=== PATIENT | male | born 1975 | race Caucasian/White ===

== ENCOUNTER 2016-07-04 17:33 | Inpatient (IN) ==
[2016-07-04] MEDS ORDERED: NS 2,000 ML ONE (17:50)
[2016-07-04] MEDS ORDERED: TYLENOL ONE ×2 (17:55→18:01)
[2016-07-04] MEDS ORDERED: TYLENOL PO ONE (18:01)
[2016-07-04] MEDS ORDERED: NS 1,000 ML IV ONE ×3 (18:01→22:51)
--- NOTE | 2016-07-04 18:12 | PROVIDER DOCUMENTATION ---
HPI-General Adult - General Chief Complaint: General Adult Stated Complaint: fever,chills Time Seen by Provider: 07/04/16 17:49 Source: patient Allergies/Adverse Reactions: Patient Allergies Allergy/AdvReac Type Severity Reaction Status Date / Time No Known Allergies Allergy Verified 07/04/16 17:37 Home Medications: Home Medication List Medication Instructions Recorded Confirmed Last Taken Type Levofloxacin [Levaquin] 500 mg PO DAILY #15 tablet 07/07/16 Unknown Rx Levofloxacin [Levaquin] 500 mg PO DAILY #15 tablet 07/07/16 Unknown Rx Levofloxacin [Levaquin] 500 mg PO DAILY #15 tablet 07/07/16 Unknown Rx - History of Present Illness -Gen Adult Nature of Presenting Problems: 41 yo male presents to ER with c/o fever, dizziness, sweating for the past 2 days. He passed out at [employer] 2 days ago but was not evaluated. He did go to [facility] and dx with thrombosed hemorrhoid and given norco and anusol supp. Location of Pain/Injury: reports: other (rectal) Pain Radiation: reports: no radiation Quality of Pain: reports: throbbing Severity: reports: moderate Onset/Duration: reports: 2 days ago Timing: reports: still present Context/Activities at Onset: reports: none Modifying Factors: improves with: nothing Associated Symptoms: reports: diaphoresis, dizziness, fever/chills, muscle aches , syncope, weakness Similar Symptoms Previously?: Yes Recently seen or treated by another doctor?: No Review of Systems - Adult - REVIEW OF SYSTEMS - ADULT Constitutional: reports: see HPI, chills, fever Eyes: reports: no symptoms reported Ears, Nose, Mouth & Throat: reports: no symptoms reported Cardiovascular: reports: no symptoms reported Respiratory: reports: no symptoms reported Gastrointestinal: reports: no symptoms reported Genitourinary: reports: no symptoms reported Musculoskeletal: reports: see HPI, muscle aches Integumentary: reports: no symptoms reported Neurological: reports: no symptoms reported Psychiatric: reports: no symptoms reported Endocrine: reports: no symptoms reported Hematologic/Lymphatic: reports: no symptoms reported Allergic/Immunologic: reports: no symptoms reported All Other Systems: Reviewed and Negative Past History - Adult - PAST MEDICAL HISTORY-ADULT Review of Records: reports: Old Records Reviewed, Nursing Assessment Review, Medications Reviewed, Social history reviewed & non-contributory. - PRIOR SURGERIES/PROCEDURES Surgical/Procedure History: reports: appendectomy - IMMUNIZATION STATUS Childhood Immunizations: See Nurse Assessment Flu Vaccine: See Nurse Assessment - SOCIAL HISTORY Smoking: cigarettes, greater than 1 pack/day (1 ppd) Provider spent 3-5 mins advising pt. on dangers of tobacco.: Discussed manners to quit use, and f/u contacts for add'l counseling. Substance Use: none/never, denies Alcohol Use Frequency: never Living Situation: family Physical Exam-General - PHYSICAL EXAM-ADULT Initial Vital Signs Reviewed: Yes - CONSTITUTIONAL General Appearance: appears well, alert, no apparent distress - EYES Eyes: PERRL/EOMI - HEAD, EARS, NOSE, MOUTH & THROAT HENMT: normocephalic/atraumatic - RESPIRATORY Respiratory: no respiratory distress - CARDIOVASCULAR Cardiovascular: tachycardia - GASTROINTESTINAL (ABDOMEN) Abdominal Exam: normal bowel sounds, non tender, soft, tenderness (rectal area; no external hemorrhoids visualized) - GENITOURINARY Rectal Exam: tenderness, other (induration at 1200 position with palpable heat to the area.). negative: hemorrhoids - MUSCULOSKELETAL Back Exam: normal inspection Extremity: normal inspection, no pedal edema - SKIN Integumentary: diaphoresis, other (skin hot to touch) - NEUROLOGIC Neurologic: grossly normal - PSYCHIATRIC Psych/Mental Status: normal mood/affect, normal thought content, normal thought process, oriented x 3 Progress - PLAN OF CARE/RESULTS Progress/Plan/Lab Results: Vital Signs - 8 hr 07/04/16 17:33 Temperature 101.1 F H Pulse Rate 138 H Respiratory Rate 16 Blood Pressure 114/78 O2 Sat by Pulse Oximetry 97 Orders Category Date Time Status IV Insertion ORDERED Care 07/04/16 17:59 Ordered CHEST-2 VIEWS [RAD] Stat Exams 07/04/16 18:06 Ordered CBC WITH ELECTRONIC DIFF [HEME] Stat Lab 07/04/16 17:59 Uncollected CK PROFILE [SP CHEM] Stat Lab 07/04/16 18:06 Ordered COMPREHENSIVE METABOLIC PANEL [CHEM] Stat Lab 07/04/16 17:59 Uncollected TROPONIN T Stat Lab 07/04/16 18:[address] W/POSS RFLX CULT [URINALYSIS] Stat Lab 07/04/16 18:01 Uncollected 0.9% Sodium Chloride Inj [Ns] 1,000 ml Med 07/04/16 17:50 Discontinued .ROUTE As Directed Acetaminophen [Tylenol] Med 07/04/16 17:55 Discontinued 1,000 mg .ROUTE .STK-MED ONE Acetaminophen [Tylenol] Med 07/04/16 18:01 Once 1,000 mg PO NOW ONE Acetaminophen [Tylenol] Med 07/04/16 18:01 Discontinued 500 mg .ROUTE .STK-MED ONE Ns 1000 ml IV Bolus X1 Med 07/04/16 18:01 Ordered 0.9% Sodium Chloride Inj [Ns] 1,000 ml IV 999 mls/hr EKG [EKG] Stat Ther 07/04/16 17:38 Ordered 1910-Discussed patient case/reviewed labs/CXR with Dr. Mark; ok to order CT pelvis/abd Result Diagrams: 07/07/16 06:08 07/07/16 06:08 - XRAY 1 XRAY Study: Chest - CT/MRI 1 CT Study: Abdomen, Pelvis Impression: See EMR Report (limited exam without administered contrast; apparent proctitis; questionable sinus tract along left side of upper rectum versus artifact of limited distention; no other abscess identified; colonic diverticulosis; no free air; borderline retroperitoneal lymph nodes. -per Dr. Clancy) - CONSULTS/PCP/HOSPITALIST Notification #1 *Consult/PCP/Hospitalist*: Dr. Antunez Time Discussed: 21:55 Reason/Comments: proctitis, possible abscess per CT Consult Disposition: other (No need for consult, as pt does not have evidence of perirectal abscess) #2 Consult: Dr. Navdeep Rivera Discussed: 22:00 Reason/Comments: proctitis, possible abscess per CT, tachycardia, hypotension Consult Disposition: other (will not admit at ED; send to [facility]- no need for GI consult) #3 Consult: Dr. Romo Time Discussed: 23:21 Reason/Comments: proctitis, possible abscess per CT, tachycardia, hypotension Consult Disposition: Admit (and give vancomycin IV) - CHANGE OF SHIFT REPORT (ED Provider) Report Given and Care Transferred to:: Linda BROCK Time of Transfer: 20:16 Items Pending: CT/MRI Results Comment: stable Departure - Departure Time of Disposition Decision: 20:16 DIAGNOSIS: Fever and chills, Proctitis, Perianal erythema Hemorrhoid Qualifiers: Hemorrhoid type: unspecified Qualified Code(s): K64.9 - Unspecified hemorrhoids Disposition: ADMITTED INPATIENT 09 Certified Medical Emergency: Emergent Condition: Stable - Critical Care Note This patient required my direct personal management.: No Attestation - Physician/ WHITNEY Attestation Patient care was provided by Advanced Practice Provider:: Yes Advanced Practice Provider:: Lubna Arango Advanced Practice Provider documentation review:: The Mid-level provider documentation, treatment plan and medical decision making was reviewed by the physician who agrees with all treatment and medical decision making by the MLP.
[2016-07-04 18:15] LABS: MANUAL DIFF NEEDED? NO
[2016-07-04 18:27] LABS: BILIRUBIN URINE NEGATIVE (NEGATIVE); BLOOD URINE NEGATIVE (NEGATIVE); CLARITY CLEAR (CLEAR); COLOR YELLOW; GLUCOSE URINE NEGATIVE (NEGATIVE); LEUKOCYTES URINE TRACE (NEGATIVE); NITRITE URINE NEGATIVE (NEGATIVE); PH URINE 6.5; PROTEIN URINE NEGATIVE (NEGATIVE); SP GRAVITY URINE 1.015; UROBILINOGEN URINE 1+(1 mg/dL)
[2016-07-04 18:27] LABS: EOS# 0.02 X1000 (0.0-0.7); EOS% 0.6 % (0.0-10.0); HEMATOCRIT 41.4 % (42.0-52.0); HEMOGLOBIN 14.2 g/dL (14.0-18.0); IMM GRAN# 0.01 X1000 (0.0-0.04); IMM GRAN% 0.3 % (0.0-0.5); LYMPH# 0.44 X1000 (1.2-3.4); LYMPH% 12.3 % (20.5-51.1); MCHC 34.3 g/dL (33-37); MCV 93.2 FL (81-99); MONO# 0.03 X1000 (0.11-0.59); MONO% 0.8 % (1.7-9.3); MPV 9.9 FL (7.4-10.4); PLT 210 X1000 (130-400); RBC 4.44 XMIL (4.7-6.1)
--- NOTE | 2016-07-04 18:47 | EKG Report ---
Test Performed on : 07/04/2016 5:38:07 PM Test Reason : TACHY Blood Pressure : / mmHG Vent. Rate : 135 BPM Atrial Rate : 135 BPM P-R Int : 142 ms QRS Dur : 078 ms QT Int : 378 ms P-R-T Axes : 038 016 036 degrees QTc Int : 567 ms Sinus tachycardia. Nonspecific ST and T wave abnormality Abnormal ECG No previous ECGs available Unconfirmed Result
[2016-07-04 18:53] LABS: URINE CAST NONE SEEN /LPF; URINE CRYSTAL NONE SEEN /HPF; URINE CULTURE PL NEEDED? YES; URINE EPITHELIAL CELLS <10 /HPF (<10); URINE RBC <10 /HPF (<10); URINE SOURCE CLEAN CATCH; URINE WBC <10 /HPF (<10)
[2016-07-04] MEDS ORDERED: MOTRIN ONE (18:55)
[2016-07-04 18:59] LABS: AGAP 15; ALKALINE PHOSPHATASE 111 U/L (32-122); BUN 14 mg/dL (8-22); CALCIUM 8.9 mg/dL (8.8-10.2); CHLORIDE 101 mmol/L (98-107); COSMO 272; GOT 15 U/L (10-34); GPT 13 U/L (10-44); POTASSIUM 3.8 mmol/L (3.5-5.1); SODIUM 136 mmol/L (136-145); TCO2 19 mmol/L (25-35); TOTAL PROTEIN 7.1 g/dL (6.3-8.3)
[2016-07-04] MEDS ORDERED: MOTRIN PO ONE (19:00)
[2016-07-04] MEDS ORDERED: ZOSYN 3.375 GM/NS 3.375 GM/50 ML IVPB IV ONE (21:54)
[2016-07-04 22:31] LABS: UR AMPHETAMINES QUAL NONE DETECTED (NONE DETECT); UR BARBITUATES QUAL NONE DETECTED (NONE DETECT); UR BENZODIAZEPIN QUAL NONE DETECTED (NONE DETECT); UR CANNABINOIDS QUAL NONE DETECTED (NONE DETECT); UR COCAINE QUAL NONE DETECTED (NONE DETECT); UR MDMA QUAL NONE DETECTED (NONE DETECT); UR METHADONE QUAL NONE DETECTED (NONE DETECT); UR METHAMPHETAMINE QUAL NONE DETECTED (NONE DETECT); UR OPIATES QUAL NONE DETECTED (NONE DETECT); UR OXYCODONE QUAL NONE DETECTED (NONE DETECT); UR PCP QUAL NONE DETECTED (NONE DETECT); UR TCA QUAL NONE DETECTED (NONE DETECT)
[2016-07-04] MEDS ORDERED: VANCOMYCIN 1 GM/NS 1 GM/250 ML IVPB IV ONE (23:22)
[2016-07-04] MEDS ORDERED: MORPHINE IV PRN (23:33)
[2016-07-04] MEDS ORDERED: ZOFRAN IV PRN (23:33)
--- NOTE | 2016-07-05 09:06 | Diag Imaging Result Document ---
PROCEDURE NAME: ABDOMEN/PELVIS W/O CONTRAST - 07/04/2016 CT ABDOMEN AND PELVIS WITHOUT CONTRAST: COMPARISON: None available. FINDINGS: Note that this study is somewhat limited due to lack of IV contrast. There is vague haziness involving the perirectal fat suggesting proctitis. There is an apparent diverticulum arising from the left side of the rectum. This may be artifact due to poor distention. I can identify discrete abscess given the limitations of having no IV contrast. There is extensive sigmoid colonic diverticulosis. There is no evidence of diverticulitis involving the sigmoid colon specifically. There is evidence of a prior appendectomy. There are few shotty borderline prominent pelvic lymph nodes that are probably reactive. The remainder of the solid viscera of the abdomen and pelvis and the remainder of the GI tract is essentially unremarkable. IMPRESSION: 1. Vague inflammatory changes surrounding the rectum suggesting proctitis. 2. Apparent diverticulum arising from the left side of the rectum as well as sigmoid colonic diverticulosis. 3. Other incidental/nonacute findings detailed above.
--- NOTE | 2016-07-05 09:14 | Diag Imaging Result Document ---
PROCEDURE NAME: CHEST-2 VIEWS - 07/04/2016 FRONTAL AND LATERAL CHEST, TWO VIEWS: FINDINGS: The lungs are well expanded. The heart is not enlarged. The vessels are not distended. No pneumonia. No pleural effusions. No free air beneath the diaphragm. IMPRESSION: No acute abnormality.
[2016-07-05] MEDS ORDERED: NS 1,000 ML IV SCH (11:40)
[2016-07-05] MEDS ORDERED: VANCOMYCIN IV PER PHARMACY MISC SCH (11:40)
[2016-07-05] MEDS ORDERED: TUCKS HEMORRHOIDAL OINTMENT PR PRN (11:40)
[2016-07-05] MEDS ORDERED: ZOFRAN IV PRN ×2 (11:40→15:57)
[2016-07-05] MEDS ORDERED: FLAGYL 500 MG/NS 500 MG/100 ML IVPB IV SCH (11:45)
[2016-07-05] MEDS ORDERED: TUCKS PADS TOP PRN ×2 (12:15→15:56)
[2016-07-05] MEDS ORDERED: ZOSYN 3.375 GM/NS 3.375 GM/50 ML IVPB IV SCH (12:30)
[2016-07-05] MEDS ORDERED: PREPARATION H OINT PR PRN ×2 (12:45→15:56)
[2016-07-05] MEDS ORDERED: VANCOMYCIN 1,750 MG in NS 500 ML IV SCH (13:00)
[2016-07-05] MEDS ORDERED: VANCOMYCIN 1,750 MG in NS 250 ML IV SCH ×4 (13:00)
[2016-07-05] MEDS ORDERED: NICODERM PATCH TD SCH (13:15)
[2016-07-05 14:40] LABS: BASO% 0.1 % (0.0-0.8); EOS# 0.12 X1000 (0.0-0.7); EOS% 0.4 % (0.0-10.0); HEMATOCRIT 37.7 % (42.0-52.0); HEMOGLOBIN 12.2 g/dL (14.0-18.0); IMM GRAN# 0.19 X1000 (0.0-0.04); IMM GRAN% 0.6 % (0.0-0.5); LYMPH# 1.01 X1000 (1.2-3.4); LYMPH% 3.3 % (20.5-51.1); MANUAL DIFF NEEDED? YES; MCH 30.5 PG (27-31); MCHC 32.4 g/dL (33-37); MCV 94.3 FL (81-99); MONO# 1.84 X1000 (0.11-0.59); MONO% 5.9 % (1.7-9.3); MPV 10.9 FL (7.4-10.4); NEUT% 89.7 % (42.2-75.2); PLT 168 X1000 (130-400)
[2016-07-05 14:45] LABS: HYPOCHROM OCCASIONAL; TARGET CELLS OCCASIONAL
--- NOTE | 2016-07-05 16:19 | HISTORY AND PHYSICAL ---
CHIEF COMPLAINT: Rectal pain. HISTORY OF PRESENT ILLNESS: This is a 41-year-old male with a history of tobacco abuse who presented to the emergency room complaining of rectal pain, a temperature of a 104 degrees and generalized body aches and rigors. This 41-year-old male who presented to the emergency room after been found to have a temperature of 104 degrees and developing rigors , generalized body aches over the 2-3 hours prior to coming to the emergency room. He states that a week ago he developed rectal pain after having an episode of constipation. This did increase and therefore he went to an outside emergency room. He states he was evaluated by 2 separate emergency room doctors, diagnosed with external hemorrhoids, given Anusol and Lortab. He was at [facility] getting these medications filled on Tuesday, he had an episode of a sudden onset of nausea, shortly after his ears began to ring, he started sweating and he passed out. He said he woke up on the floor with EMS at his side. Vital signs were stable at this time. He refused treatment and went home with his girlfriend. He continued to have rectal pain and diarrhea stated yesterday he was eating lunch and began to have generalized body ache, shortly after he developed rigors, began to sweat, his temperature was reportedly 104 therefore he was brought into the emergency room. On arrival he did have a temperature of 101 degrees and within an hour it did go up to 103.1. CT scan of the abdomen and pelvis revealed vague inflammatory changes surrounding the rectum suggesting proctitis well as a diverticulum arising from the left side of the rectum with sigmoid colonic diverticulosis with no diverticulitis seen. Shortly after being in the emergency room his blood pressure did drop to 70s to 80s. He was resuscitated with 3 or 4 L of saline, given vancomycin, Zosyn and admitted to ICU for further evaluation and treatment. PAST MEDICAL HISTORY: Denies. PAST SURGICAL HISTORY: Denies. SOCIAL HISTORY: He does smoke about a pack to 2 packs a day. He denies alcohol or illicit drug use. He does have family members that are close that are active in his care. ALLERGIES: No known drug allergies. HOME MEDICATIONS: None. REVIEW OF SYSTEMS: A 14 point review of systems is discussed with patient with pertinent positives stated in HPI. He denies chest pain, palpitations, dizziness, nausea , vomiting, constipation any black or bloody vomitus, black or bloody stools, hematuria, dysuria, frequency, urgency. PHYSICAL EXAMINATION: GENERAL: This is a 41-year-old male who is sitting in the bed in no distress. VITAL SIGNS: Blood pressure is 139/64 with a heart rate of 84, respirations are 20, temperature is 98.2 degrees with room air saturation is 98-100%. HEENT: Head is normocephalic, atraumatic. Pupils equal, round, react to light. EOMS are intact. Sclerae anicteric. Mucous membranes are moist. NECK: Supple. Trachea midline. CARDIOVASCULAR: Regular rate and rhythm S1, S2 appreciated. PULMONARY: Breath sounds are clear. No increased work of breathing noted. GASTROINTESTINAL: Abdomen is soft, nontender, nondistended with bowel sounds in all 4 quadrants. BACK: No CVAT. No spine tenderness. EXTREMITIES: No clubbing, cyanosis, or edema. Calves nontender. Pulses are palpable x4. RECTAL: He does have an area at around 3, 4, 5 o'clock to the rectum that is fluctuant, it is very tender to palpation. He has no drainage. DIAGNOSTICS: WBC is 3.58 on admission, this morning is 30.99, hemoglobin 14.2, hematocrit 41.4 on admission with platelets of 210,000. Sodium 136, potassium 3.8, BUN 14, creatinine 0.9 with a glucose of 93. Urinalysis is essentially negative. Urine drug screen is negative. Flu A and B are negative. CT scan of the abdomen pelvis as stated above. ASSESSMENT AND PLAN: 1. Perirectal abscess. 2. Sepsis secondary to #1. 3. History hemorrhoids. PLAN: The patient has been admitted to ICU. He has had fluid resuscitation. We will continue with fluids, will continue antibiotic coverage of vancomycin, Zosyn and Flagyl. We will consult Dr. Zapata general surgery. He will remain on clear liquids until we speak with Dr. Zapata. We have Tucks and hemorrhoid ointment for local irritation. Nicotine patch as needed. Further treatments pending hospital course. Dictated by LI Aguilar for Akshat Harrington MD cc: LI Aguilar Addendum: I personally evaluated and examined the patient in conjunction to the [employer] and agreed with her assessments and plans. My examined showed evidence of perianal abscess MTDD
[2016-07-05] MEDS: NS 1,000 ML IV SCH (17:18)
--- NOTE | 2016-07-05 18:20 | CONSULTATION ---
DATE OF CONSULTATION: 07/05/2016 HISTORY OF PRESENT ILLNESS: This 41-year-old male who presents with syncope, fevers, tachycardia and perianal pain who is admitted ICU with hypotension, tachycardia and fevers up to 104. He has been given antibiotics and fluid resuscitation overnight and is clinically improved. He continues have perianal pain and difficulty sitting down. CT shows some stranding around his distal rectum with proctitis of unclear etiology. He has some diverticulosis. States he recently was constipated, but denies any bleeding and overall, no long-term change in his bowel habits. PAST MEDICAL HISTORY: Negative. SURGICAL HISTORY: He has had an appendectomy. SOCIAL HISTORY: Pack-a-day smoker. No alcohol. Works in construction. FAMILY HISTORY: Negative for cancer. Specifically, colon and rectal cancer. He has never had a colonoscopy. REVIEW OF SYSTEMS: 10 point negative other than HPI PHYSICAL EXAMINATION: Vital Signs: Temperature is 98.6 degrees at this point with pulse of 80, but he was tachycardic when he got here up to 120s. Blood pressure 147/64, oxygen saturation 99% on room air. General: He is alert, in no acute distress. HEENT: There is no scleral icterus. No cervical masses. No lymphadenopathy in his cervical or axillary basins. Cardiovascular: Normal rate, regular rhythm. Pulmonary: No increased work of breathing. He is on room air. Abdomen: Soft, nontender, nondistended. I do not feel any inguinal hernias. There is no inguinal lymphadenopathy. Integument: Warm, dry, without jaundice. Musculoskeletal: There is no lower extremity edema. His extremities are well perfused with normal muscle tone. Rectal: There is some induration and fluctuance in the left lateral aspect, very tender to the perianal skin. Digital rectal exam deferred given patient discomfort. I do not see any external hemorrhoidal tissue. No obvious prolapsing masses. LABORATORY: White count was 3.58 when he was admitted, 30.99 this morning. Hematocrit 36. LFTs are normal. Lactate was 1.7 last night. Creatinine 0.9. Glucose 93. Urinalysis: Trace white blood cells. UDS, flu A and b were negative. IMAGING: CT scan showed noncontrast shows some diverticulosis and stranding around his distal rectum, but no obvious abscess. ASSESSMENT/PLAN: A 41-year-old male with a perirectal abscess noted on exam with some stranding noticed in distal rectum. He came in with a septic-type picture. With resuscitation and antibiotics, this seemed to improve. He still has tenderness on examination. Risks, benefits, alternatives discussed with patient and he consents to examination under anesthesia with drainage of perirectal abscess and flexible sigmoidoscopy/rigid proctoscopy. We will mobilize to the OR this afternoon. We did discuss possibility of this developing a fistula over time and the need for other surgeries in the future. We also discussed the importance of getting a colonoscopy after this episode is resolved in the next month or so given his recent change of bowel habits. Plans are being made to transfer to [facility]. We will do the surgery and follow him while inpatient there. He is on appropriate antibiotics. cc: Berny Zapata MD MTDD
[2016-07-05] MEDS: ZOSYN 3.375 GM/NS 3.375 GM/50 ML IVPB IV SCH (20:13)
[2016-07-05] MEDS: FLAGYL 500 MG/NS 500 MG/100 ML IVPB IV SCH (21:47)
[2016-07-05] MEDS ORDERED: MORPHINE ONE (22:35)
[2016-07-05] MEDS ORDERED: DIPRIVAN 1% ONE (22:52)
[2016-07-05] MEDS ORDERED: FENTANYL ONE (22:53)
[2016-07-06] MEDS: FLAGYL 500 MG/NS 500 MG/100 ML IVPB IV SCH ×4 (02:33→20:13)
[2016-07-06] MEDS: ZOSYN 3.375 GM/NS 3.375 GM/50 ML IVPB IV SCH ×3 (04:01→23:11)
[2016-07-06] MEDS: VANCOMYCIN 1,750 MG in NS 250 ML IV SCH ×2 (05:14→18:07)
[2016-07-06] MEDS: MORPHINE IV PRN ×2 (05:14→20:13)
[2016-07-06 06:22] LABS: HEMATOCRIT 36.3 % (42.0-52.0); HEMOGLOBIN 11.9 g/dL (14.0-18.0); MCH 31.5 PG (27-31); MCHC 32.8 g/dL (33-37); MPV 10.8 FL (7.4-10.4); RBC 3.78 XMIL (4.7-6.1)
[2016-07-06 06:31] LABS: AGAP 13; BUN 15 mg/dL (8-22); CALCIUM 8.1 mg/dL (8.8-10.2); CHLORIDE 108 mmol/L (98-107); COSMO 286; SODIUM 143 mmol/L (136-145); TCO2 22 mmol/L (25-35)
[2016-07-06] MEDS: PRILOSEC PO SCH (06:39)
[2016-07-06] MEDS: TYLENOL PO PRN (06:51)
[2016-07-06] MEDS ORDERED: PRILOSEC PO SCH (07:00)
--- NOTE | 2016-07-06 07:25 | OPERATIVE NOTE ---
PROCEDURE DATE: 07/05/2016 PREOPERATIVE DIAGNOSES: 1. Perirectal abscess. 2. Question proctitis. POSTOPERATIVE DIAGNOSIS: Perirectal abscess. COMPLICATIONS: None. PROCEDURE PERFORMED: 1. Examination under anesthesia. 2. Incision and drainage of perirectal abscess, intersphincteric. 3. Flexible sigmoidoscopy. SPECIMENS: Cultures from abscess cavity. COMPLICATIONS: None. INDICATION: This is a 42-year-old male who is admitted with a septic-type picture. CT scan showed some stranding around the distal rectum. Exam was consistent with an abscess. Examination with flexible sigmoidoscopy to rule out mucosal process and drainage of abscess indicated. OPERATIVE FINDINGS: Flexible sigmoidoscopy to 30 cm was normal and showed no mucosal lesions. There is no evidence of mucosal erythema. Examination under anesthesia: In the left posterior quadrant, there was some indurated tissue right at the anal verge with area of fluctuance and erythema. Digital rectal exam showed some induration in this area as well but there are no masses. There were some prominent hemorrhoidal tissue but no prolapsing hemorrhoids noted. There was no evidence of fistula tract on the internal exam. OPERATIVE NOTE: Risks, benefits, alternatives discussed with the patient. He consented to the procedure. He was seen in the preoperative area where surgery to be performed was confirmed. He was taken to the operating room, placed in the supine position. General anesthesia was induced. Preprocedural antibiotics were confirmed. He is on scheduled antibiotics. He was placed in lithotomy position. All bony prominence were padded. The perineum was prepped with Betadine solution and draped in the usual fashion. After time-out was performed an examination was performed with the above findings. An 11 blade scalpel used to incise the areas of most fluctuance. There was very thin skin and it was almost spontaneously draining. We opened this. Disrupted the underlying loculations bluntly with care to protect the sphincter muscles ,which were significantly inflamed in this area and involved with the abscess cavity. We disrupted this draining all collections. Obtained hemostasis. After irrigating the wound, we packed this with half-inch iodoform gauze. We then did a flexible sigmoidoscopy with the above findings. After digital rectal exam, we advanced the scope using gentle insufflation up to 30 cm past the rectal valves into the sigmoid colon. Given his the lithotomy position, we could not examine the descending colon, but were able examine the mucosa of the sigmoid and rectum, which was the area in question. There were no mucosal lesions and no erythema or ulcerations of this area. No bleeding was noted. We desufflated the colon and brought the scope out and again confirmed hemostasis. Applied ABD and gauze, and mesh panties for dressing. He has awoken and transferred to PACU in good condition where I spoke to the family. Counts correct x2. cc: Berny Zapata MD MTDD
[2016-07-06] MEDS: PERIDEX MT SCH ×2 (08:44→20:13)
[2016-07-06] MEDS: NS 1,000 ML IV SCH (08:52)
[2016-07-06] MEDS ORDERED: XYLOCAINE-MPF 2% ONE (09:01)
[2016-07-06] MEDS ORDERED: ZOFRAN ONE (09:01)
[2016-07-06 10:11] LABS: BANDS 10 % (0-1); LYMPHS 4 % (21-51)
[2016-07-06 11:15] LABS: MONO 4 % (1-9)
[2016-07-06] MEDS: NICODERM PATCH TD SCH ×3 (12:44→20:13)
--- NOTE | 2016-07-06 12:50 | PROGRESS NOTE ---
DATE: 07/06/2016 SUBJECTIVE: Pain is much improved. No other issues overnight after surgery. OBJECTIVE: Afebrile, pulse 76, blood pressure 110/67, oxygen saturation 95% on room air. General: He is alert, in no acute distress. The incision site and his perianal skin is with decreased erythema and induration. No necrotic tissue. Packing was removed, and he tolerated this well. He is having flatus. Pain is much improved. I reviewed his labs. White count is down to 21 from 31. Creatinine is 0.9. Wound cultures are pending. Gram stain shows Gram positive cocci, and his blood culture showed gram-negative rods. ASSESSMENT AND PLAN: A 41-year-old male admitted with sepsis related to a perianal abscess. He is now status post drainage of perirectal abscess and a flexible sigmoidoscopy which showed no mucosal lesions or erythema. Clinically, he is improving. He does seem to be bacteremic from this, and he is on adequate antibiotic per the medicine service. As far as wound care, I would keep the dressing covered with ABD pad. He can shower daily, and I wanted him to keep the wound clean; otherwise, increase his ambulation. We will defer treatment of his bacteremia to the medicine service but suspect he will need at least a 10-day course of oral antibiotics. I can see him back in 1 week for wound evaluation as an outpatient. cc: Berny Zapata MD
--- NOTE | 2016-07-06 15:28 | CONSULTATION ---
DATE OF CONSULTATION: 07/06/2016 CONCLUSION: Patient is status post incision and drainage of a perirectal abscess performed by Dr. Zapata. RECOMMENDATIONS: I agree with decision to place the patient on Zosyn and vancomycin pending culture results. PRESENT ILLNESS: The patient tells me that he developed severe pain in the rectal area. He also had fever. He eventually had drainage of purulent fluid from his rectum. He was admitted to the hospital. Dr. Zapata has perform surgery on him as mentioned above. All the cultures taken at surgery are pending. The urine grew a mixed growth and blood cultures are negative. The Gram stain from the perirectal abscess showed gram-positive cocci. [place] [address], hemoglobin 11.9, and platelet count 150,000. Creatinine is 0.9. GFR is greater than 60. PAST MEDICAL HISTORY/REVIEW OF SYSTEMS: Eyes and ears: He denies difficulty hearing or seeing. Respiratory: No cough or dyspnea. Neck: No stiffness. Cardiovascular: No chest pain or palpitations. GI: No nausea, vomiting, or diarrhea. See present illness for description of the patient's perirectal abscess. : No dysuria or flank pain. Neurologic: No motor or sensory deficit. No seizures. Integument: No rash. The remainder of the patient's review of systems was completed and it was negative. PREVIOUS HOSPITALIZATIONS AND OPERATIONS: The patient has had surgery for a perforated appendicitis. MEDICAL DISEASES: Negative for diabetes mellitus and hypertension. INFECTIOUS DISEASE HISTORY: Positive for UTI. FAMILY HISTORY: Positive for myocardial infarction, and COPD. SOCIAL HISTORY: [place] He is [place] to a woman. He has been before. 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 He smokes cigarettes. Does not drink alcoholic beverages. Does not use illicit drugs. MEDICATIONS: He is on no home medications. ALLERGIES: His chart lists no known drug allergies. PHYSICAL EXAMINATION: Temperature is 98.7 degrees, pulse 76, respirations 18, blood pressure 110/67.Generally: This is a healthy-appearing, obese young male, who is in no acute distress. Head, eyes, ears, nose, and throat: He can hear my spoken words and see near objects. No drainage noted from the nose or ears. Neck: No meningismus. Thorax: Increased AP diameter of the chest. Lungs: Clear to auscultation. Cardiovascular: Regular heart rate. Abdomen: Soft without masses or tenderness. Extremities: Patient does have some edema of the legs. Integument: No rash. Rectal Exam: The patient has a dressing over the rectal area. There is some sanguinous drainage on the dressing. Neurologic: Patient is alert. He can move his extremities. There is no tremor. His sensation is intact to touch. His memory , as regarding his medical history is intact. Thank you very much for this most interesting consultation. cc: James Tang MD MTDD
--- NOTE | 2016-07-06 15:51 | PROGRESS NOTE ---
DATE: 07/06/2016 SUBJECTIVE: The patient is resting comfortably in bed. He states that he wants to go home. OBJECTIVE: Vital Signs: Temperature 97.8 degrees, blood pressure 112/65, heart rate 70, respirations 16, O2 saturation 94% on room air. General: This is a middle-aged male, lying in bed in no acute distress. HEENT: Head normocephalic, atraumatic. Heart: S1 and S2 normal. Regular rate and rhythm. Lungs: Clear to auscultation bilaterally. No wheezes. No rales. No rhonchi. Abdomen: Positive bowel sounds. Soft, nontender, nondistended. Extremities: No edema. No cyanosis. LABORATORIES: White blood cell count 21, hemoglobin 11, hematocrit 36, platelets 150,000. Sodium 143, potassium 4, chloride 108, CO2 of 22, BUN 15, creatinine 0.9, glucose 99. ASSESSMENT AND PLAN: 1. Perirectal abscess status post incision and drainage. We will continue on the current IV antibiotic regimen. Cultures are pending. 2. Bacteremia secondary to Gram-negative rods. Continue on IV antibiotic therapy. Will follow up on the final blood culture results. 3. Leukocytosis. Improved. Continue on IV antibiotic therapy. 4. Deep vein thrombosis prophylaxis. Will start the patient on Lovenox. cc: Rachel Frank MD
[2016-07-07] MEDS: TYLENOL PO PRN (00:04)
[2016-07-07] MEDS: FLAGYL 500 MG/NS 500 MG/100 ML IVPB IV SCH ×2 (02:41→09:45)
[2016-07-07] MEDS: MORPHINE IV PRN (04:14)
[2016-07-07] MEDS: VANCOMYCIN 1,750 MG in NS 250 ML IV SCH (05:17)
[2016-07-07] MEDS: PRILOSEC PO SCH ×2 (05:41→07:33)
[2016-07-07 06:39] LABS: HEMATOCRIT 35.5 % (42.0-52.0); HEMOGLOBIN 11.6 g/dL (14.0-18.0); MCH 31.2 PG (27-31); MCHC 32.7 g/dL (33-37); MCV 95.4 FL (81-99); MPV 10.7 FL (7.4-10.4); RBC 3.72 XMIL (4.7-6.1)
[2016-07-07 07:18] LABS: AGAP 12; BUN 13 mg/dL (8-22); CALCIUM 8.1 mg/dL (8.8-10.2); CHLORIDE 109 mmol/L (98-107); COSMO 285; POTASSIUM 4.3 mmol/L (3.5-5.1); SODIUM 143 mmol/L (136-145); TCO2 22 mmol/L (25-35)
[2016-07-07] MEDS ORDERED: LOVENOX SUBQ SCH (09:00)
[2016-07-07] MEDS: ZOSYN 3.375 GM/NS 3.375 GM/50 ML IVPB IV SCH ×2 (09:44→14:37)
[2016-07-07] MEDS: PERIDEX MT SCH (09:45)
[2016-07-07 10:54] VITALS: BP 123/81
--- NOTE | 2016-07-07 14:03 | PROGRESS NOTE ---
DATE: 07/07/2016 SUBJECTIVE: The patient feels good today. He wants to go home. He is afebrile and his white count has improved. OBJECTIVE: Vital signs: Temperature 98.2, blood pressure 120/81. Heart rate 60, respirations 16. O2 saturation 99% on room air. General: This is a middle-aged male, lying in bed, in no acute distress. HEENT: Head normocephalic, atraumatic. Heart: S1, S2 normal. Regular rate and rhythm. Lungs: Clear to auscultation bilaterally. No wheezes, no rales. No rhonchi. Abdomen: Positive bowel sounds. Soft, nontender, nondistended. Extremities: No edema. No cyanosis. No calf tenderness. Neurologic: The patient is alert and oriented x3. LABS: White blood cell count 12.8, hemoglobin 11.6, hematocrit 35, platelets 150,000. Sodium 143, potassium 4.3, chloride 109, CO2 22, BUN 13, creatinine 1, glucose 94, magnesium 1.9. ASSESSMENT AND PLAN: 1. Perirectal cyst, status post incision and drainage. The final cultures are currently pending. The patient remains on IV antibody. 2. Bacteremia secondary to Escherichia coli. Continue on IV antibiotic therapy. Dr. Tang is following. 3. Leukocytosis. Improved. 4. Deep vein thrombosis prophylaxis. Continue on Lovenox. DISPOSITION: We will plan to discharge the patient home once cleared by the general surgeon and infectious disease specialist. cc: Rachel Frank MD MTDD
--- NOTE | 2016-07-07 15:18 | PROGRESS NOTE ---
DATE: 07/07/2016 PRESENT ILLNESS: The patient is status post incision and drainage of a perirectal abscess. MEDICATIONS: The patient currently is on vancomycin and Zosyn, and Flagyl. PHYSICAL EXAMINATION: Vital Signs: Temperature is 98.2 degrees, pulse 60, respirations 16, blood pressure 123/81. General: The patient looks very healthy. He is in no acute distress. Lungs: Clear to auscultation. Cardiovascular: Regular heart rate. Abdomen: Soft and nontender. Rectal: I looked in the rectal area posteriorly. I did not see any drainage or a large opening. There was no swelling that I can detect either. LABORATORY AND X-RAY: CBC today showed a white count that has gotten down to 12,880, hemoglobin 11.6, and platelet count 150,000. Creatinine is 1. GFR is greater than 60. The patient's blood culture is growing out Escherichia coli. The patient's culture from the abscess is growing out a Gram-negative floyd which has not yet been identified. ASSESSMENT: Patient is status post drainage of perirectal abscess. PLAN: The plan is to send him home on Levaquin 500 mg daily for 15 days. I have printed up the prescription and put it in the chart for the patient. I have also requested that the patient see me in the office 2 weeks after discharge. I have discontinued vancomycin and Flagyl now, and Zosyn is still going until the patient is discharged. COMORBIDITIES: I could not really find any comorbidity on this patient other than he is a large person and probably has a lot of rubbing in the perineal area, and he works doing hard physical labor and that probably sets the stage for infection to develop. cc: James Tang MD
--- NOTE | 2016-07-07 16:31 | PROGRESS NOTE ---
DATE: 07/07/2016 SUBJECTIVE: Feels that the pain is resolved for the most part. He is having bowel function. No nausea, vomiting. He is walking around. OBJECTIVE: Vital Signs: No fevers. Pulse 60, blood pressure 123/81, oxygen saturation 99% on room air. General: He is alert. Abdomen: Soft, nontender. Skin: Warm, dry. Rectal exam: Shows decreased erythema and induration and some serosanguineous drainage from his I and D site, but no necrosis. LABS: I have reviewed his labs. His white count has fallen to 12 from 21 yesterday, hematocrit stable at 35, creatinine is 1.0, glucose is 94. ASSESSMENT/PLAN: A 41-year-old male with perirectal abscess, status post incision and drainage with flexible sigmoidoscopy. He is doing well clinically. He was bacteremic from this. His white count has fallen. Dr. Tang has seen him and made recommendation for oral antibiotics. I agree with Levaquin for 15 days. Will see him back next week in my office for recheck and to set up a colonoscopy, which he needs to have given some change in bowel movements that he has had. I will arrange for this in the next month or so. He is to follow up with Dr. Tang in a couple weeks as well. Otherwise, I think it is safe to discharge home at this time if okay from Medicine Service perspective. I have given him my follow up information to see me next week. cc: Berny Zapata MD
--- NOTE | 2016-07-17 18:43 | DISCHARGE SUMMARY ---
ADMISSION DATE: 07/04/2016 DISCHARGE DATE: 07/07/2016 FINAL DISCHARGE DIAGNOSES: 1. Perirectal abscess status post incision and drainage secondary to E. coli. 2. Bacteremia secondary to E. coli. 3. Leukocytosis. CONSULTATIONS REQUESTED DURING THIS HOSPITAL STAY: 1. General surgery consultation with Dr. Zapata. 2. ID consultation with Dr. James Tang. PROCEDURES PERFORMED DURING THIS HOSPITAL STAY: 1. Incision and drainage of a perirectal abscess. 2. Flexible sigmoidoscopy. HOSPITAL COURSE: Mr. Campos is a 41-year-old male who initially presented to [facility] with rectal pain. The patient had a CT of the abdomen and pelvis done that revealed vague inflammatory changes involving the rectum as well as proctitis. This was discussed with the general surgeon who recommended that the patient be transferred to [facility] for surgical intervention. In the ER, the patient was noted to be hypotensive with a white count of 31,000. The patient was started on broad-spectrum antibiotics after blood cultures were obtained. ID is well as General Surgery were consulted. The patient was taken to the OR on 07/05/2016 at which time, the perirectal abscess was incised and drained and cultures were taken during the procedure as well. The patient's antibiotics were continued throughout the hospital stay. The cultures from both the blood and the wound culture grew out E. coli. It was recommended by Dr. Tang that the patient be sent home on Levaquin 500 mg p.o. daily for 15 days and the patient will need to follow up with Dr. Tang in 2 weeks from discharge. Also Dr. Zapata saw the patient on the day of discharge and will see the patient in 1 week from discharge. DISCHARGE MEDICATIONS: Levaquin 500 mg p.o. daily x15 days. DISCHARGE INSTRUCTIONS: The patient will need to follow up with Dr. James Tang in 2 weeks. The patient will need to follow up with Dr. Zapata next week as scheduled by his clinic. cc: Rachel Frank MD
--- NOTE | 2016-09-06 17:21 | ED EKG INTERP ---
This chart was entered by Lubna Peters Scribe, acting as scribe for Terry Zhang MD. EKG Interpretation - EKG Time of EKG reading by physician:: 17:38 EKG Read and Signed by:: Terry Zhang EKG Interpretation (*Must complete 3 of following elements*): Abnormal Rate: 135 Rhythm: sinus tachycardia Comments: nonspecific ST and T wave abnormality This chart was documented by the indicated scribe, (Lubna Peters Scribe) and accurately reflects the services I performed and decisions made by me, Terry Zhang MD, as attested by the provider's signature.
== END 2016-07-07 15:57 | disposition home or self-care (01) ==
LOC: P.ED 17:33 → P.ICU 23:54 → SUATTDRO 23:54 → P.MEDSURG 07-05 12:39 → UNDODISIN 07-05 14:07 → 4N 07-05 15:45
PROVIDERS: ATTEND Internal Medicine